=== PATIENT | male | born 1995 | race Caucasian/White ===

== ENCOUNTER 2020-01-20 11:29 | Emergency (ER) | payer SELFPAY ==
[2020-01-20] MEDS ORDERED: Penicillin V Potassium 500 MG Tab PO STA (11:51)
[2020-01-20] MEDS ORDERED: Lidocaine 2% Viscous Solution 15 ML Cup PO ONE (11:51)
[2020-01-20] MEDS ORDERED: Benzocaine 20% Topical Spray UD MUCMEM ONE (11:51)
--- NOTE | 2020-01-20 11:55 | EDM.PDOC ---
ED HPI GENERAL MEDICAL PROBLEM - General Chief Complaint: General Stated Complaint: SWOLLEN JAW Time Seen by Provider: 01/20/20 11:32 Source of Information: Reports: Patient History Limitations: Reports: No Limitations - History of Present Illness INITIAL COMMENTS - FREE TEXT/NARRATIVE: HISTORY AND PHYSICAL: History of present illness: Patient is a 24-year-old male who presents to the emergency room with complaints of left lower jaw pain and swelling. He is concerned as approximately 2-1/2 years ago he had fractured his jaw which required a plate and screw. He has had no complications since and has had no repeat injury or trauma. He had noticed some soft tissue swelling along his gumline and pain when he chews in the posterior molar. Patient denies any fever, chills, headache, change in vision, syncope or near syncope. Denies any chest pain, back pain, difficulty swallowing, shortness of breath or cough. Denies any abdominal pain, nausea, vomiting, diarrhea, constipation or dysuria. Has not noted any blood in urine or stool. Patient has been eating and drinking appropriately. Review of systems: As per history of present illness and below otherwise all systems reviewed and negative. Past medical history: As per history of present illness and as reviewed below otherwise noncontributory. Surgical history: As per history of present illness and as reviewed below otherwise noncontributory. Social history: See social history for further information Family history: As per history of present illness and as reviewed below otherwise noncontributory. Physical exam: General: Well developed and well nourished 24-year-old male. Alert and orientated x 3. Nontoxic in appearance and in no acute distress. Vital signs are stable and have been reviewed by me. Nursing notes were reviewed. HEENT: Atraumatic, normocephalic, pupils equal and reactive bilaterally, negative for conjunctival pallor or scleral icterus, mucous membranes moist, left bottom posterior molar is erythematous and tender, TMs normal bilaterally, throat clear, neck supple, nontender, trachea midline. No drooling or trismus noted. No meningeal signs. No hot potato voice noted. Lungs: Clear to auscultation, breath sounds equal bilaterally, chest nontender. Normal work of breathing, no accessory muscles used. Heart: S1S2, regular rate and rhythm without overt murmur Abdomen: Soft, nondistended, nontender. Skin: Intact, warm, dry. No lesions or rashes noted. Hematologic: No petechiae or purpra. Mucosa appropriate color and normal nail bed color and refill. Extremities: Atraumatic, moves all extremities per self without difficulty or deficits, negative for cords or calf pain. Neurovascular unremarkable. Neuro: Awake, alert, oriented. Cranial nerves II through XII unremarkable. Cerebellum unremarkable. Motor and sensory unremarkable throughout. Exam nonfocal. Psychiatric: Mood and affect are appropriate. Normal thought process. Answering questions appropriately. Notes: Patient is encouraged to follow-up with a dentist. At this time I feel his previous mandible surgery does not have anything to do with the dental abscess. He is appropriate for discharge and close follow-up. We discussed signs and symptoms that would prompt them to return to the Emergency Department. Medication, follow up and supportive care measures were reviewed and discussed. Voices understanding and is agreeable to plan of care. Denies any further questions or concerns at this time. Diagnostics: None Therapeutics: Dental Balls, Pen VK Prescription: Pen VK and Naprosyn Impression: Dental abscess Plan: 1. Today your physical exam shows a dental abscess to the left posterior molar. We always encourage you to follow up with the dentist in the next few days for re-evaluation and further care/management. If your symptoms should worsen, new symptoms develop or any of the signs and symptoms we discussed should arise please return to the emergency room or call 911 (if needed). 2. Please take the antibiotic as prescribed. 3. Tylenol and/or ibuprofen as needed for pain management. "Tooth Balls" have been given to you; apply along the gumline every 2-3 hours as needed. Do not swallow these; external use only. Definitive disposition and diagnosis as appropriate pending reevaluation and review of above. . - Related Data Allergies Allergy/AdvReac Type Severity Reaction Status Date / Time No Known Allergies Allergy Verified 01/20/20 11:46 Home Meds: Home Meds Naproxen [Naprosyn] 500 mg PO Q12HR PRN #30 tab 01/20/20 [Rx] Penicillin V Potassium 500 mg PO TID 10 Days #30 tab 01/20/20 [Rx] ED ROS GENERAL - Review of Systems Review Of Systems: Comprehensive ROS is negative, except as noted in HPI. ED EXAM, GENERAL - Physical Exam Exam: See Below (See dictation) Course - Vital Signs Last Recorded V/S: Last Vital Signs Temp 97.4 F 01/20/20 11:47 Pulse 84 01/20/20 11:47 Resp 18 01/20/20 11:47 BP 128/78 01/20/20 11:47 Pulse Ox 97 01/20/20 11:47 - Orders/Labs/Meds Meds: Medications Discontinued Medications Generic Name Dose Route Start Last Admin Trade Name Freq PRN Reason Stop Dose Admin Benzocaine 2 each 01/20/20 11:51 Hurricaine One 20% MUCMEM 01/20/20 11:52 ONETIME ONE Lidocaine HCl 15 ml 01/20/20 11:51 Xylocaine 2% Viscous PO 01/20/20 11:52 ONETIME ONE Penicillin V Potassium 500 mg 01/20/20 11:51 Veetids PO 01/20/20 11:52 NOW STA Departure - Departure Time of Disposition: 12:01 Disposition: Home, Self-Care 01 Clinical Impression: Dental abscess - Discharge Information Prescriptions: Naproxen [Naprosyn] 500 mg PO Q12HR PRN #30 tab PRN Reason: Pain Penicillin V Potassium 500 mg PO TID 10 Days #30 tab Instructions: Dental Abscess, [id number] Referrals: PCP,Not In Area [Primary Care Provider] - Forms: ED Department Discharge Additional Instructions: The following information is given to patients seen in the emergency department who are being discharged to home. This information is to outline your options for follow-up care. We provide all patients seen in our emergency department with a follow-up referral. The need for follow-up, as well as the timing and circumstances, are variable depending upon the specifics of your emergency department visit. If you don't have a primary care physician on staff, we will provide you with a referral. We always advise you to contact your personal physician following an emergency department visit to inform them of the circumstance of the visit and for follow-up with them and/or the need for any referrals to a consulting specialist. The emergency department will also refer you to a specialist when appropriate. This referral assures that you have the opportunity for follow-up care with a specialist. All of these measure are taken in an effort to provide you with optimal care, which includes your follow-up. Under all circumstances we always encourage you to contact your private physician who remains a resource for coordinating your care. When calling for follow-up care, please make the office aware that this follow-up is from your recent emergency room visit. If for any reason you are refused follow-up, please contact the [facility] Emergency Department at and asked to speak to the emergency department charge nurse. [facility] [address] [place] [address] [facility] [address] [place] [address] Thank you for choosing the [facility] emergency department in [place] for your medical needs today. It was a pleasure caring for you. Today you were seen in the emergency department for dental abscess and swelling. 1. Today your physical exam shows a dental abscess to the left posterior molar. We always encourage you to follow up with the dentist in the next few days for re-evaluation and further care/management. If your symptoms should worsen, new symptoms develop or any of the signs and symptoms we discussed should arise please return to the emergency room or call 911 (if needed). 2. Please take the antibiotic as prescribed. 3. Tylenol and/or ibuprofen as needed for pain management. "Tooth Balls" have been given to you; apply along the gumline every 2-3 hours as needed. Do not swallow these; external use only. Sepsis Event Note (ED) - Focused Exam Vital Signs: Vital Signs Temp Pulse Resp BP Pulse Ox 01/20/20 11:47 97.4 F 84 18 128/78 97
== END 2020-01-20 12:10 | disposition home or self-care (01) ==
LOC: MW.ED 11:29
DX: K04.7 Periapical abscess without sinus (principal)
CPT/HCPCS: 99282; A9270